=== PATIENT | female | born 1995 | race Caucasian/White ===

== ENCOUNTER 2016-11-25 23:57 | Observation (INO) | payer OTHER ==
[~2016-11-25] VITALS: Ht 167.6 cm; Wt 59.7 kg
[2016-11-25 23:59] VITALS: BP 107/68; PULSE 89; RESP 16; O2SAT 100
[2016-11-26] VITALS (14 sets, daily range): BP systolic 93–125; BP diastolic 45–87; PULSE 48–101; RESP 11–24; O2SAT 92–100
--- NOTE | 2016-11-26 00:08 | ED.REPORT ---
HPI-NVD Date of Service Nov 26, 2016 ED Provider: Norm Bowman MD Patient is a 21 year old female who presents to the ED with stabbing epigastric pain that began yesterday morning. Patient states that she first awoke from sleep with the pain, but was able to go back to sleep. However, the pain has been present since that time. She states that the pain waxes and wanes, often stabbing in character. Patient reports a subjective fever. She admits to associated nausea but has not vomited. She admits to recent diarrhea, but denies having any diarrhea today. She reports some mild right sided flank pain but denies dysuria, or other urinary symptoms. Patient denies currently being and is currently on her menstrual period. She has an ultrasound scheduled later this week for possible ovarian cysts. Patient denies prior cholecystectomy, a history of gallstones, or a family history of gallbladder disease. Nursing Notes Chief Complaint: Female Abdominal Pain Nursing Notes Reviewed: Yes Allergies: Coded Allergies: codeine (Verified Allergy, Severe, Anaphylaxis, 11/26/16) Cephalosporins (Verified Allergy, Unknown, 11/26/16) tramadol (Verified Adverse Reaction, Severe, 11/26/16) dizziness Uncoded Allergies: SUDAPHED (Allergy, Severe, Hives, 11/26/16) PENICILLIN (Allergy, Unknown, 11/26/16) SULFA (Allergy, Unknown, 11/26/16) General Time Seen by MD: 00:07 Chief Complaint Nausea, Diarrhea, Abd pain, constant Hx Obtained From: Patient Arrived By: Walk-in Onset Occurred: Yesterday Symptom Duration: Waxes and wanes Location: : Epigastric Quality: Painful, Stabbing Radiation: : To flank Severity: Current: Moderate Severity: Maximum: Severe Recent Healthcare: No recent doctor visit, No recent hospitalization Similar Sx Previous: No Past Medical History Past Medical History healthy Past Surgical History none Smoking History Never Smoker Social History Alcohol Use: Denies alcohol use Drug Use: Denies drug use Other Social History: Good social support, Local resident Ambulatory Status Independent Review of Systems Constitutional: Reports: Fever (subjective) GI: Reports: Abdominal pain, Diarrhea (yesterday), Nausea, Denies: Vomiting Complete sys rev & neg: except as marked. Female: Denies: Dysuria, Flank pain, , Urinary frequency, Urinary urgency Physical Exam Initial Vital Signs Vital Signs (First) Date Time Temp Pulse Resp B/P Pulse Ox O2 Delivery O2 Flow Rate FiO2 11/25/16 23:59 36.1 89 16 107/68 100 Room Air Initial VS: Reviewed, Vital signs normal Head / Eyes: Atraumatic, Normocephalic, PERRL ENT: Mucous membranes moist, Conjunctiva normal, No scleral icterus Neck: Supple, Full range of motion Respiratory: Breath sounds normal, Clear to auscultation, No respiratory distress Cardiovascular: Regular rate & rhythm, Heart sounds normal Extremities: Vascular intact, Neuro intact Skin: Warm, Dry, No cyanosis Neurologic: Alert, Oriented, Nonfocal Psychiatric: Mood/affect normal, Behavior normal, Normal thought content General/Constitutional: Awake, Alert, No acute distress Abdomen: Soft, No guarding, No rebound Tenderness/Guarding/Rebound: Positive: Tender RUQ..., Tender epigastric Interpretation & Diagnostics Interpretation & Diagnostics: Urine Test: Negative US ABDOMEN CONCLUSION: Findings suspicious for early acute appendicitis; correlate clinically. No gallstones or biliary ductal dilatation. Radiologist: Ken Marinelli MD 11/26/2016 - 2:44:[address] [facility] Lab Results Interpretation Result Diagram: 11/26/16 0020 11/26/16 0020 Test 11/26/16 00:20 White Blood Count 15.8th/mm3 (3.8-10.1) Red Blood Count 4.48mil/mm3 (3.90-5.20) Hemoglobin 13.5g/dL (12.0-15.6) Hematocrit 40.0% (35.0-46.0) Mean Corpuscular Volume 89.3fL (81-100) Mean Corpuscular Hemoglobin 30.1pg (27.0-35.0) Mean Corpuscular Hemoglobin Concent 33.8% (32.0-37.0) Red Cell Distribution Width 13.0% (12.3-15.4) Platelet Count 273bil/L (150-400) Neutrophils (%) (Auto) 56.9% (40-74) Lymphocytes (%) (Auto) 33.4% (14-46) Monocytes (%) (Auto) 7.8% (4-12) Eosinophils (%) (Auto) 0.9% (0-5) Basophils (%) (Auto) 0.6% (0-3) Hold Purple Top Tube Received (Received) Hold Blue Top Tube Received (Received) Hold Urine Received (Received) Sodium Level 140mEq/L (134-144) Potassium Level 3.8mEq/L (3.5-5.2) Chloride Level 102mEq/L (97-108) Carbon Dioxide Level 26mmol/L (18-29) Blood Urea Nitrogen 9mg/dL (6-20) Creatinine 0.57mg/dL (0.57-1.00) Estimat Glomerular Filtration Rate 188mL/min (>59) Glucose Level 72mg/dL (60-99) Calcium Level 9.8mg/dL (8.5-10.1) Magnesium Level 2.0mg/dL (1.6-2.6) Total Bilirubin 1.4mg/dL (0.0-1.2) Aspartate Amino Transf (AST/SGOT) 18U/L (0-50) Alanine Aminotransferase (ALT/SGPT) 12U/L (0-32) Alkaline Phosphatase 51U/L (25-150) Total Protein 7.4g/dL (6.4-8.4) Albumin 4.6g/dL (3.4-5.0) Lipase 30U/L (13-60) Hold Red Top Tube Received (Received) Hold [place] Top Tube Received (Received) Hold [place] Top Tube Received (Received) Lab Results Interpretation: Elevated white blood count Re-Eval/Medical Decision Med Decision/Clinical Course 21-year-old female who presents with a day and a half of abdominal pain intensifying and localizing to her right side. She has an elevated white count of 15,800. She is anorectic. She has had no fever. Ultrasound shows that she has upper limits normal size nondistendable appendix with wall thickening. Her case was discussed with Dr. Schrader. Transitional orders were written including Zosyn antibiotic. She will have surgery later this morning. Re-Evaluation/Progress #1: Time of Eval: 01:17 Re-Evaluation/Progress Note: Rechecked the patient to discuss the results of her labs. Will order an ultrasound due to the abnormalities found. Patient understands and agrees with this plan. Re-Evaluation/Progress #2: Time of Eval: 02:21 Re-Evaluation/Progress Note: Informed the patient of the ultrasound results, with the finding of acute appendicitis. Her abdomen is tender on the entire right side on reexamination. Patient will need to be admitted to the hospital for surgery. She understands and agrees with this plan. All questions were addressed. Consultation : Referral / Consult Name: Lokesh Schrader MD Consulted With: Surgeon Call Returned at: 02:56 Storage Facility Rental Clerk: Will see patient, Agrees with eval, Agrees with plan, Accepts admit Note: Spoke with Dr. Schrader, surgeon, about the patient's case. He agrees to accept the patient for admit. Counseled Regarding: Diagnosis, Lab results, Need for admission Discharge & Departure Impression: Primary Impression: Acute appendicitis Acute appendicitis type: unspecified acute appendicitis type Qualified Code: K35.80 - Unspecified acute appendicitis Disposition: ADMITTED TO HOSPITAL Discharge Condition All VS Reviewed: Yes Condition: Stable Scribe Attestation Portions of this note were transcribed by Karely Kramer. I, Dr. Bowman personally performed the history, physical exam and medical decision-making; I reviewed and confirmed the accuracy of the information in the transcribed note. Signed by: Maria Isabel Collins, 11/26/2016 0257 Norm Bowman MD Nov 26, 2016 00:08 Karely Kramer Nov 26, 2016 00:32
[2016-11-26] MEDS ORDERED: 0.9% Sodium Chloride 1,000 ML IV ONE (00:43)
[2016-11-26] MEDS ORDERED: Ondansetron 2 mg/mL 2 mL Inj IVPUSH PRN ×4 (00:45→09:45)
[2016-11-26] MEDS ORDERED: Pantoprazole 4 mg/mL 10 mL Inj IVPUSH ONE (00:45)
[2016-11-26 00:53] LABS: BASOPHILS % (AUTO) 0.6 % (0-3); EOSINOPHILS % (AUTO) 0.9 % (0-5); MONOCYTES % (AUTO) 7.8 % (4-12); Mean Corpuscular Hemoglobin 30.1 pg (27.0-35.0); Mean Corpuscular Volume 89.3 fL (81-100); NEUTROPHILS % (AUTO) 56.9 % (40-74); Platelet Count 273 bil/L (150-400)
[2016-11-26] MEDS: HYDROmorphone 0.5 mg/0.5 mL iSecure Syringe IVPUSH PRN ×4 (01:14→18:01)
[2016-11-26] MEDS ORDERED: levoFLOXacin Inj 500 MG in IV Premix 1 EACH IV ONE ×3 (02:55→11:35)
[2016-11-26] MEDS ORDERED: metroNIDAZOLE Inj 500 MG in IV Premix 1 EACH IV ONE ×3 (02:55→11:35)
[2016-11-26] MEDS ORDERED: fentaNYL-PF 50 mCg/mL 2 mL Inj ONE (03:27)
[2016-11-26] MEDS ORDERED: HYDROmorphone 2 mg/mL Inj ONE (03:27)
[2016-11-26] MEDS ORDERED: Dexamethasone 4 mg/mL Inj ONE (03:27)
[2016-11-26] MEDS ORDERED: Rocuronium 10 mg/mL 5 mL Inj ONE (03:27)
[2016-11-26] MEDS ORDERED: Propofol 10,000 mCg/mL 20 mL Inj ONE (03:27)
[2016-11-26] MEDS ORDERED: Ondansetron 2 mg/mL 2 mL Inj ONE (03:27)
[2016-11-26] MEDS ORDERED: MetoCLOpramide 5 mg/mL 2 mL Inj ONE (03:27)
[2016-11-26] MEDS ORDERED: Succinylcholine Chloride 20 mg/mL 5 mL Inj ONE (03:27)
[2016-11-26] MEDS ORDERED: 0.9% Sodium Chloride 250 ML ONE (04:11)
--- NOTE | 2016-11-26 06:08 | NUR ---
Admit/Abd pain Admitted pt from ED to [facility], and has been afebrile. Pt denies ongoing abdominal pain, but states that pain is going on and off and has been radiating to her lower back. Pt denies sob, n/v. IV ABx administered as scheduled. Currently on NPO for possible procedure.
[2016-11-26 07:54] LABS: APPEARANCE,URINE HAZY (CLEAR,HAZY); COLOR,URINE YELLOW (YELLOW); OCCULT BLOOD,URINE MODERATE (NEGATIVE); UROBILINOGEN,URINE NORMAL (NORMAL)
[2016-11-26] MEDS ORDERED: Lactated Ringer's 1,000 ML IV ONE (08:52)
[2016-11-26] MEDS ORDERED: Bupivacaine-MPF 0.5% W/EPI 30 mL Inj INFILTRATE ONE (08:55)
--- NOTE | 2016-11-26 09:20 | DRSVH ---
PROCEDURE: US ABDOMEN INDICATIONS: RUQ abd pain, elev WBC and Bili TECHNIQUE: Real-time scanning was performed of the abdominal and retroperitoneal organs, with image documentatio n. COMPARISON: None. FINDINGS: Liver length: 18.10 cm Gallbladder Wall Thickness: 2.40 mm CBD: 3.50 mm Spleen length: 10.85 cm Right kidney length: 11.08 cm Left kidney length: 10.37 cm Aorta(Proximal): 1.57 cm Aorta(Mid): 1.52 cm Aorta(Distal): 1.47 cm RCIA: 9.60 mm LCIA: 9.20 mm Liver: Liver is normal in size and homogeneous in echotexture. Gallbladder: Normal gallbladder. Biliary ducts: Intrahepatic bile ducts are non-dilated. Extrahepatic bile duct caliber is normal. Normal is 6-7 mm or less in diameter, or 10 mm or less post-cholecystectomy. Pancreas: Visualized portions of the pancreas are sonographically normal. Spleen: Spleen is normal in size and homogeneous in echotexture. Kidneys: Kidneys are normal in size and echotexture. No hydronephrosis or nephrolithiasis. No francesca d masses. Aorta: Visualized aorta is normal in caliber at less than 3 cm. Iliacs: Proximal common iliac arteries are normal in caliber at less than 2.5 cm. IVC: Intrahepatic inferior vena cava is patent. Miscellaneous: No free abdominal fluid. The appendix is well-visualized and abnormally thickened me asuring 8 mm. Appendix is noncompressible. There is focal right lower quadrant tenderness. IMPRESSION: 1. No abnormality seen within the upper abdomen. 2. Findings suspicious for early nonruptured acute appendicitis. Recommend clinical correlation. Note: These findings are concordant with the preliminary interpretation. Dictated by: Jay Bray [facility] Interpreted: Sita Weaver MD on 11/26/2016 at 9:17 Transcribed by: YOLANDA on 11/26/2016 at 9:19 Approved by: Sita Weaver MD, PhD on 11/26/2016 at 11:47
--- NOTE | 2016-11-26 09:40 | PCM.HPANE ---
Patient Data Date of Service: Nov 26, 2016 Surgeon Admitting Provider:Lokesh Schrader MD Attending Provider:Lokesh Scharder MD Primary Care Physician:Mary Other Provider:Aron Josue Anesthesia Reason for Visit Acute Appendicitis Ht/WT & BMI Height (Feet): 5 Height (Inches): 6.00 Weight (Kilograms): 59.700 Body Mass Index 21.15 Allergies Coded Allergies: codeine (Verified Allergy, Severe, Anaphylaxis, 11/26/16) Cephalosporins (Verified Allergy, Unknown, 11/26/16) tramadol (Verified Adverse Reaction, Severe, 11/26/16) dizziness Uncoded Allergies: SUDAPHED (Allergy, Severe, Hives, 11/26/16) PENICILLIN (Allergy, Unknown, 11/26/16) SULFA (Allergy, Unknown, 11/26/16) Diabetes History Hx Diabetes?: No Medications Home Meds Incl Beta Venkatesh: No History History of ENT Problems?: No HEENT History: Positive for:: Sinus Problem (sinus surgery) Denies:: Cataracts Dysphagia Glaucoma Other HEENT Pertinent History: sinus surgery and tonsilectomy Hx of Heart Problems?: No Cardiovascular History: Denies:: Congestive Heart Failure Hypertension Hx of Respiratory Problem?: Yes Respiratory History: Positive for:: Asthma (sports induced ashtma) Denies:: COPD Chest Surgery Dyspnea Emphysema Tuberculosis Hx Neurologic Problems?: No Neurological History: Denies:: Alzheimer's Disease CVA Dementia Dizziness Headaches Parkinson's Disease Seizures Hx of GI Problems?: Yes Gastrointestinal History: Positive for:: Gastroesphageal Reflux Heartburn Denies:: Diverticulitis Gastrointestinal Bleeding Hepatitis Hiatal Hernia Rectal Bleeding Other GI Pertinent History: Appendecitis ongoing Hx of Problems?: No Genitourinary History: Denies:: HX of Hemodialysis Kidney Stones Urinary Tract Infection HX of Peritoneal Dialysis: No Female Hx: Denies:: Currently Endometriosis Pelvic Inflammatory Problems with Breasts? Hx Musculoskeletal Problems?: No Hx of Psycho/Social Problems?: No Psycho Social History: Positive for:: Anxiety Denies:: Bipolar Disorder Hx Depression Suicide Attempt Hx Surgeries?: No Other History: Denies:: Cancer Hospitalization Thyroid Disease History Blood Transfusions: Positive for:: Accept Blood Products? Denies:: Blood Transfuse Reaction Blood Transfusions Hx Diabetes: No Hx Alcohol Use: NoHx Substance Use: No Smoking Status: Never Smoker Have You Smoked inLast 12 mo: Yes Stop/Bang Treated for Sleep Apnea?: No Do You Have a CPAP Machine?: No S-Snoring: Do You Snore Loudly: No T-Tired: feel tired, fatigued: No O-Obsered: Observed not breath: No P-Blood Pressure: treated: No B- Body Mass Index > 35 kg/m2: No A- Age over 50: No N- Neck Large Circumference: No G- Gender Male: No AKSHAT Total Score: 0 AKSHAT Risk Assessment: Low Risk, <3 Yes Risk Assessment Category Category 1A: Patient has history of documented sleep apnea, and HAS NOT received any narcotic, sedative or anesthesia administration during this stay. Category 1B: Patient has history of documented sleep apnea, and HAS received any narcotic , sedative or anesthesia administration during this stay Category 2: Patient has SUSPECTED Obstructive Sleep Apnea, and HAS received any narcotic , sedative or anesthesia administration during this stay. Category 3: Patient has SUSPECTED Obstructive Sleep Apnea and HAS NOT received narcotic, sedative or anesthesia administration during this stay. Category 4: Outpatient in Procedural Areas with known sleep apnea or who screen positive for High Risk via the STOP/BANG questionnaire. Exam Exam Vital Signs Vital Signs Date Time Temp Pulse Resp B/P Pulse Ox O2 Delivery O2 Flow Rate FiO2 11/26/16 08:12 36.4 62 16 100/48 100 Room Air 11/26/16 04:26 36.3 68 18 94/51 97 Room Air 11/26/16 02:29 70 16 108/51 100 Room Air General Appearance: Alert, Oriented X3, Cooperative, No Acute Distress HEENT/AIRWAY: MP 1 Lungs: Clear to Auscultation, Normal Air Movement Heart: Exam Unremarkable, Normal S1, Normal S2, No Murmurs/Rubs/Gallops Meds/Labs/Diagnostics Admission Meds Current Medications Sodium Chloride (Normal Saline) 1,000 ml @ 0 mls/hr Q0M ONCE IV Last administered on 11/26/16 01:13; Start 11/26/16 at 00:43; Stop 11/26/16 at 00:45 ; Status DC Pantoprazole 40 mg 40 mg ONCE ONCE IVPUSH Last administered on 11/26/16 01:13 ; Start 11/26/16 at 00:45; Stop 11/26/16 at 00:46; Status DC Levofloxacin/ Dextrose 500 mg/ Premix 100 ml @ 100 mls/hr ONCE ONCE IV Last administered on 11/26/16 04:18; Start 11/26/16 at 02:55; Stop 11/26/16 at 03:54 ; Status DC Metronidazole/ Sodium Chloride 500 mg/Premix 100 ml @ 200 mls/hr ONCE ONCE IV Last administered on 11/26/16 03:13; Start 11/26/16 at 02:55; Stop 11/26/16 at 03:24; Status DC Sodium Chloride 250 ml @ ud STK-MED ONCE .ROUTE Last administered on 11/26/16 04:17; Start 11/26/16 at 04:11; Stop 11/26/16 at 04:14; Status DC Lactated Ringer's (Lr) 1,000 ml @ ud STK-MED ONCE IV Last administered on 11/26 08:52; Start 11/26/16 at 08:52; Stop 11/26/16 at 09:02; Status DC Bupivacaine HCl/ Epinephrine Bitart (Sensorcaine-MPF 0.5% W/EPI Inj) 30 ml STK- MED ONCE INFILTRATE Last administered on 11/26/16 08:55; Start 11/26/16 at 08: 55; Stop 11/26/16 at 09:30; Status DC Labs Test 11/26/16 00:20 White Blood Count 15.8th/mm3 (3.8-10.1) Red Blood Count 4.48mil/mm3 (3.90-5.20) Hemoglobin 13.5g/dL (12.0-15.6) Hematocrit 40.0% (35.0-46.0) Mean Corpuscular Volume 89.3fL (81-100) Mean Corpuscular Hemoglobin 30.1pg (27.0-35.0) Mean Corpuscular Hemoglobin Concent 33.8% (32.0-37.0) Red Cell Distribution Width 13.0% (12.3-15.4) Platelet Count 273bil/L (150-400) Neutrophils (%) (Auto) 56.9% (40-74) Lymphocytes (%) (Auto) 33.4% (14-46) Monocytes (%) (Auto) 7.8% (4-12) Eosinophils (%) (Auto) 0.9% (0-5) Basophils (%) (Auto) 0.6% (0-3) Hold Purple Top Tube Received (Received) Hold Blue Top Tube Received (Received) Urine Color Yellow (YELLOW) Urine Appearance Hazy (CLEAR,HAZY) Urine pH 6.0 (5.0-8.0) Urine Specific [place] 1.030 (1.003-1.035) Urine Protein Negativemg/dL (NEG,TRACE) Urine Glucose (UA) Negativemg/dL (NEGATIVE) Urine Ketones Negativemg/dL (NEGATIVE) Urine Occult Blood Moderate (NEGATIVE) Urine Nitrite Negative (NEGATIVE) Urine Bilirubin Negative (NEGATIVE) Urine Urobilinogen Normalmg/dL (NORMAL) Urine Leukocyte Esterase Negative (NEGATIVE) Urine RBC 3-10/hpf (0-2) Urine WBC 0-5/hpf (0-5) Urine Epithelial Cells Occasional/hpf (NONE-MOD) Urine Crystals Oxalic acid crystals (NONE Urine Bacteria None/hpf (NONE-FEW) Urine Hyaline Casts None/lpf (NONE) Urine Granular Casts None seen (NONE SEEN) Urine Waxy Casts None seen (NONE SEEN) Urine Red Blood Cell Casts None seen (NONE SEEN) Urine White Blood Cell Casts None seen (NONE SEEN) Urine Mucus Present (None Seen) Urine Trichomonas None seen (NONE SEEN) Urine Yeast None (NONE SEEN) Urinalysis Comment None Urine Culture Reflexed Not indicated Hold Urine Received (Received) Sodium Level 140mEq/L (134-144) Potassium Level 3.8mEq/L (3.5-5.2) Chloride Level 102mEq/L (97-108) Carbon Dioxide Level 26mmol/L (18-29) Blood Urea Nitrogen 9mg/dL (6-20) Creatinine 0.57mg/dL (0.57-1.00) Estimat Glomerular Filtration Rate 188mL/min (>59) Glucose Level 72mg/dL (60-99) Calcium Level 9.8mg/dL (8.5-10.1) Magnesium Level 2.0mg/dL (1.6-2.6) Total Bilirubin 1.4mg/dL (0.0-1.2) Aspartate Amino Transf (AST/SGOT) 18U/L (0-50) Alanine Aminotransferase (ALT/SGPT) 12U/L (0-32) Alkaline Phosphatase 51U/L (25-150) Total Protein 7.4g/dL (6.4-8.4) Albumin 4.6g/dL (3.4-5.0) Lipase 30U/L (13-60) Hold Red Top Tube Received (Received) Hold [place] Top Tube Received (Received) Hold Fry Top Tube Received (Received) Plan Impression Patient chart reviewed, patient interviewed and anesthestic plan with risks, benefits, and alternatives discussed, and informed consent obtained. ASA Physical Status: ASA2 Mod Systemic Disease (tobacco/MJ abuse) Anesthetic Plan: GA Bene/Risks/Altern/Consents: Yes HP Complete Prior to Induction: Yes Trevin Valenzuela DO Nov 26, 2016 09:40
[2016-11-26] MEDS ORDERED: Lactated Ringer's 500 ML IV PRN (09:41)
[2016-11-26] MEDS ORDERED: Lactated Ringer's 1,000 ML IV SCH (09:41)
[2016-11-26] MEDS ORDERED: Dexamethasone 4 mg/mL Inj IVPUSH PRN (09:45)
[2016-11-26] MEDS ORDERED: Phenylephrine 10,000 mCg/mL Inj IVPUSH PRN (09:45)
[2016-11-26] MEDS ORDERED: MetoCLOpramide 5 mg/mL 2 mL Inj IVPUSH PRN (09:45)
[2016-11-26] MEDS ORDERED: EPHEDrine Sulfate 50 mg/mL Inj IVPUSH PRN (09:45)
[2016-11-26] MEDS ORDERED: fentaNYL-PF 50 mCg/mL 2 mL Inj IVPUSH PRN (09:45)
[2016-11-26] MEDS ORDERED: diphenhydrAMINE 25 mg Capsule PO PRN (10:00)
[2016-11-26] MEDS: HYDROmorphone 1 mg/mL Inj IVPUSH PRN ×2 (10:10→10:27)
--- NOTE | 2016-11-26 12:22 | PCM.ANEP1 ---
Post Anesthesia Phase 1 PACU Phase 1 Assessment Date of Service: Nov 26, 2016 Vital Signs Vital Signs Date Time Temp Pulse Resp B/P Pulse Ox O2 Delivery O2 Flow Rate FiO2 11/26/16 11:01 36.4 72 19 96/63 100 Room Air 11/26/16 10:34 57 14 99/45 99 Nasal Cannula 2 11/26/16 10:20 36.3 48 13 99/57 96 Nasal Cannula 2 11/26/16 10:15 60 24 103/49 92 Room Air 11/26/16 10:10 82 11 119/57 96 Room Air 11/26/16 10:05 101 12 125/67 99 Simple Mask 8 11/26/16 10:01 36.2 97 14 115/87 100 Simple Mask 8 11/26/16 08:12 36.4 62 16 100/48 100 Room Air 11/26/16 04:26 36.3 68 18 94/51 97 Room Air Anesthetic Administered: GA Level of Alertness: Awake, talking PRITCHETT's with Equal Strength: Yes Pain: Yes Pain Scale Score: 6 Nausea or Vomiting: No Oxygen Delivery: Simple Mask Lungs: Clear to Auscultation, Normal Air Movement Dermatome Level: Full Sensation Trevin Valenzuela DO Nov 26, 2016 12:22
--- NOTE | 2016-11-26 12:31 | PCM.ANEP2 ---
Post Anesthesia Evaluation ASA/CMS Post Anesthesia Date of Service: Nov 26, 2016 VS in Patient's Normal Range?: Yes Resp Stable; Airway Patent?: Yes CV Function & Hydration Stable: Yes Mental Status Recovered?: Yes Pain control Satisfactory?: Yes N/V Control Satisfactory?: Yes Trevin Valenzuela DO Nov 26, 2016 12:31
[2016-11-26] MEDS: Ondansetron 2 mg/mL 2 mL Inj IVPUSH PRN ×2 (13:30→20:10)
[2016-11-26] MEDS ORDERED: ALPR0.254 PO (14:11)
--- NOTE | 2016-11-26 14:24 | PCM.DISURG ---
Surgical Discharge Instruction Date of Service Nov 26, 2016 Dates of Hospitalization Date of Hospital Admission Nov 26, 2016 at 03:26 Providers Admitting Physician: Lokesh Schrader MD Primary Care Physician: Nopcp Attending Physician: Lokesh Schrader MD Discharge Diagnosis Discharge Diagnosis appendicitis Post Operative diagnosis laparoscopic appendectomy Diet Discharge Diet: No restrictions Activity Discharge Activity-General: No restrictions Dressing and Incisional Care Dressing Care: Allow Steri Stripes to fall off, Remove outer dressing after 24 hrs Hygiene: May shower Follow Up Plan Follow Up Plan 1-2 weeks with [facility] for routine pathology review and wound check Call your provider for: Fever, Chills, Wound redness, Increasing wound pain Esequiel Chaney MD Nov 26, 2016 14:24
[2016-11-26] MEDS ORDERED: OXYC5TAB72 PO (14:25)
--- NOTE | 2016-11-26 15:06 | NUR ---
Social Work- Initial Assessment Data: Patient is a 21 year old female admitted 11/26/16 for acute appendicitis per H&P. Pt's insurance is [employer]. Pt does not have a PCP provider, as she has recently moved here from [place]. EMR reviewed. SW met with pt at bedside to discuss discharge planning, SW role explained. Pt alert and oriented x3. Pt resides in [place] with her parents where she remains independent with her ADLs. Patient does not use any DME and does not drive. Patient does not have any LTC insurance or VA benefits. SW educated pt regarding DPOA/Advance Directive and encouraged pt to bring a completed form into the hospital. SW provided phone number and plan on board. Pt to discharge home with mom and brother to transport via POV. No anticipated discharge needs. SW continue to follow. Assessment: Pt who is independent at base. Plan: Pt to discharge home with mom and brother to transport via POV. No anticipated discharge needs. SW continue to follow. TOMAS Dumont
--- NOTE | 2016-11-26 19:27 | NUR ---
Return to Floor, Pain, Nausea Patient returned to floor alert and oriented. Laparoscopic sites intact, no drainage. Patient had some pain in the lower right abdomen, controlled well with ordered pain medications. Patient had some nausea during the shift, states that ordered nausea medication resolved symptoms. Care is ongoing.
--- NOTE | 2016-11-26 23:34 | HP ---
[address] [address] HISTORY AND PHYSICAL PATIENT: RAMBO LIGHT : 1995 MR#: [id number] ADMIT: 11/26/2016 JOB ID: [id number] IDENTIFICATION: A 21-year-old woman admitted to the Surgery service with probable appendicitis. HISTORY OF PRESENT ILLNESS: The patient notes onset of abdominal pain over the past 24 hours. She has some mild associated nausea, feels better since receiving IV antibiotics and pain medicines in the emergency department. She is in the middle of her menstrual cycle, and has never had mid cycle pain similar to this. She does have some history of irritable bowel syndrome, but symptoms are not flaring up right now and have not been similar to this pain. In the emergency department, she had an ultrasound, was felt to have appendicitis, and was started on antibiotics. PAST MEDICAL HISTORY: None. MEDICATIONS: None. ALLERGIES: 1. PENICILLIN. 2. SULFA. 3. CEPHALOSPORINS. 4. TRAMADOL. 5. CODEINE. 6. SUDAFED. SOCIAL HISTORY: Smoker. Negative daily alcohol use. She is seen with her mother and her brother. They have recently moved here from [place] for her father's job. FAMILY HISTORY: Her mother had her appendix out at age 17. REVIEW OF SYSTEMS: Negative. PHYSICAL EXAMINATION: Temperature is 36.3, pulse is in the 60s, blood pressure is 100/48, room air saturation is 100%. She is in no acute distress. Lungs: Clear. Heart sounds are regular. She has mild right lower quadrant tenderness. No suprapubic tenderness. She has a tampon in place. Rectal and pelvic exam is not performed. LABORATORIES: White count last night was 15.8, hematocrit was 40. Chemistries are normal except for mild elevation of bilirubin at 1.4. Lipase was 30. Urine was negative. UA showed some red cells, though was likely contaminated specimen. IMAGING: I have reviewed the ultrasound reports, worksheet and films. This seems to be consistent with appendicitis with appendix at 8 mm and noncompressible. IMPRESSION AND PLAN: Probable appendicitis. We have talked about the options of further imaging or observation, but I have recommended that we undergo a laparoscopic appendectomy this morning as I have a high index of suspicion that she indeed does have appendicitis. She agrees to proceed. We will re-dose her with her antibiotics preop.
--- NOTE | 2016-11-26 23:46 | OP ---
[address] [address] OPERATIVE REPORT PATIENT: RAMBO LIGHT : 1995 MR#: [id number] ADMIT: 11/26/2016 JOB ID: [id number] DATE OF SURGERY: 11/26/2016 PREOPERATIVE DIAGNOSIS(ES): Appendicitis. POSTOPERATIVE DIAGNOSIS(ES): Appendicitis. PROCEDURE: Laparoscopic appendectomy. SURGEON: Esequiel Chaney MD. MASH FILTER OPERATOR: 1. Laron Tadeo PA-C. 2. Yesy Mojica MS3. INDICATIONS: A 21-year-old female who presents with signs and symptoms consistent with appendicitis. FINDINGS: 1. Acute nonperforated appendicitis. 2. Presence of an inventory assistant was needed for camera operation and skin closure. 3. The patient did not receive perioperative antibiotics within one hour prior to incision as described below. PROCEDURE: Patient was brought to the operating room. General anesthetic was administered. The abdomen was prepped and draped in a sterile fashion. The SCOAP protocol was followed with a surgical time-out. After intubation, but prior to time-out, I found out that the order for the antibiotics to be re-dosed within an hour prior to surgery had not been taken off by pharmacy and we; therefore, were faced with the decision to delay her incision while waiting for pharmacy to mix up the drugs and get them up and infuse them in the patient, or to simply move ahead. Given that she was under general anesthetic and that she had received an adequate dose of Levaquin and Flagyl roughly four hours prior to the incision, I felt that it was in the patient's best interest to proceed without further IV antibiotics rather than have extended time under anesthesia. We; therefore, proceeded without further antibiotics, as confirmed with time-out. We began with a Veress needle in an infraumbilical position, insufflated the abdomen and then placed an optical trocar. The abdomen was surveyed. There was minimal free fluid down in the pelvis. Two additional ports were placed. The patient was positioned head down and tilted to the left. This revealed what was an obviously inflamed appendix consistent with early acute appendicitis. The base of the appendix was nice and soft. We made a window where the appendix was detached the cecum and then placed our stapler and divided the appendix right at the base. The staple line was intact. We did not have significant residual appendiceal stump. We now took down the mesoappendix with cautery staying fairly close to the appendix and hemostasis was good. The appendix was removed in a bag without wound contamination. We now inspected our staple line in the area of operation for adequate hemostasis. Staple line good, hemostasis was good. We irrigated appropriately. We let down the pelvis and both tubes and ovaries appeared normal. The liver appeared grossly normal. We suctioned out all of the irrigation, removed our ports, closed the suprapubic incision at the fascial level, followed by skin closure with absorbable sutures. The patient tolerated the procedure well. The patient will be redosed with her antibiotics in the recovery room without anticipated further antibiotic usage.
[2016-11-27 05:05] VITALS: BP 99/57; PULSE 52; RESP 16; O2SAT 98
--- NOTE | 2016-11-27 07:29 | NUR ---
Nausea Patient had some nausea at the start of shift. Patient was given 4mg Zofran and it seemed to control the nausea. Patient up independent to bathroom and ambulating around floor during shift. A&OX3. Saline locked. Patient receiving Oxycodone q4 for pain. Seems to managing pain well.
--- NOTE | 2016-11-27 09:40 | DIS ---
[address] [address] DISCHARGE SUMMARY PATIENT: RAMBO LIGHT : 1995 MR#: [id number] ADMIT: 11/26/2016 JOB ID: [id number] DIS: 11/27/2016 DISCHARGE DIAGNOSIS: Appendicitis. OPERATIONS AND PROCEDURES: Laparoscopic appendectomy. HOSPITAL COURSE: A 21-year-old otherwise healthy female who presented with signs and symptoms consistent with appendicitis. She underwent laparoscopic appendectomy without complications. She was discharged on postop day #1 with her wound intact, healing well, tolerating p.o. She will be discharged with 20 oxycodone 5 mg p.o. q.4 hours p.r.n., and told to drink prune juice, and take milk of magnesia for stool softener. She will followup in 1-2 weeks with the [facility] to review pathology and for a wound check.
--- NOTE | 2016-11-27 10:32 | NUR ---
Social Work- Readiness for Discharge/Discharge Data: EMR reviewed. Pt is on day 1 of hospitalization for acute appendicitis per H&P. Pt is POD 2. Pt is medically stable and will discharge home today. Pt to discharge home with mother and brother to transport via POV. No discharge needs. Assessment: Pt who is independent at base. Plan: Pt to discharge home today with family to transport via POV. No discharge needs. TOMAS Dumont
--- NOTE | 2016-11-27 11:19 | NUR ---
Discharge Pt discharge to home with family at 1119. A&OX3, PRITCHETT, IV dcd intact, VSS, 3x lap sites CDI, Hard copy script provided to pt, CareNotes and instructions provided on dc dx and new medications, Instructed on s/sx to seek medical attention for. All personal belongings in hand at dc. No questions/concerns left unanswered at time of dc. Pt walked off unit to vehicle. Addendum: 11/27/16 at 1121 by ANURAG ANDRES RN Pain tolerable - medicated prior to dc.
--- NOTE | 2016-11-28 13:46 | PATH ---
SURGICAL PATHOLOGY Attending Physician:Esequiel Chaney MD CASE STATUS: Signed Out PATIENT NAME: RAMBO LIGHT PID: [id number] : 1995 DATE COLLECTED:11/26/2016 16:46 SPECIMEN: Appendix CLINICAL HISTORY: PROBABLE APPENDICITIS 1).APPENDIX FINAL DIAGNOSIS: 1.APPENDIX: ACUTE APPENDICITIS. NO EVIDENCE OF MALIGNANCY. ICD10 CODE K35.80 GROSS DESCRIPTION: Received in formalin, labeled with the patient' s name and "appendix", is one pink-mclean appendix measuring 6.0 x 0.8 x 0.8 cm. There is a small amount of attached fatty tissue. The serosal surface is smooth and glistening. Sectioning of the appendix reveals a wall that measures 0.2 cm in thickness and a lumen distended to 0.3 cm in diameter and filled with a light mclean, creamy substance. Hris Coordinator sections are submitted in one cassette. ([id number]) MICRO DESCRIPTION: See diagnosis. ICD-9 CODES: CPT CODES: 1: 90433 Electronically Signed Out Elisha Jones MD [facility] [address], [place] [address] Technical component performed at [facility], [address] [place] [address] Ave[address], [place], [address]
== END 2016-11-27 11:20 | disposition home or self-care (01) ==
LOC: SED 23:57 → OSC 11-26 03:26
PROVIDERS: ADMIT Surgery; ATTEND Surgery
PROC: 0DTJ4ZZ Resection of Appendix, Percutaneous Endoscopic Approach (ICD-10-PCS; principal; 2016-11-26 08:30)
DX: K35.80 Unspecified acute appendicitis (principal); K21.9 Gastro-esophageal reflux disease without esophagitis; J45.909 Unspecified asthma, uncomplicated; F17.210 Nicotine dependence, cigarettes, uncomplicated; Z88.5 Allergy status to narcotic agent; Z88.8 Allergy status to other drugs, medicaments and biological substances
CPT/HCPCS: 44970; 76700; 80053; 81000; 81025; 83690; 83735; 85025; 94640; 96361; 96365; 96375; 96376; 99285; G0378; J0330; J1100; J1170; J2250; J2405; J2765; J3010; J3490; J7030; J7050; J7120

== ENCOUNTER 2017-02-03 15:16 | Emergency (ER) | payer OTHER ==
[~2017-02-03] VITALS: Ht 167.6 cm; Wt 54.5 kg
[~2017-02-03 15:16] MED LIST: ALPR0.254 PO; OXYC5TAB72 PO
[2017-02-03 15:30] VITALS: BP 112/67; PULSE 95; RESP 15; O2SAT 100
[2017-02-03 16:09] LABS: BASOPHILS % (AUTO) 0.9 % (0-3); EOSINOPHILS % (AUTO) 0.8 % (0-5); MONOCYTES % (AUTO) 6.8 % (4-12); Mean Corpuscular Hemoglobin 29.5 pg (27.0-35.0); Mean Corpuscular Volume 89.6 fL (81-100); NEUTROPHILS % (AUTO) 56.8 % (40-74); Platelet Count 283 bil/L (150-400)
[2017-02-03 16:30] LABS: Magnesium 1.9 mg/dL (1.6-2.6)
--- NOTE | 2017-02-03 16:57 | ED.REPORT ---
HPI-Abd Pain F Under 40 Date of Service February 03, 2017 ED Provider: Miki Rey MD Patient is a 21 year old female who presents to the ED after being referred by urgent care complaining of persistent vomiting s/p having her appendix out approximately 2 months ago. Associated symptoms include throbbing, midline abdominal pain, chills, and back pain that radiates to her hip. She denies fever , constipation, diarrhea, dysuria, melena, or any other symptoms. She reports that her pain sometimes subsides with eating. She has taken antacids without relief. Nursing Notes Stated Complaint: STOMACH PAIN Chief Complaint: Female Abdominal Pain Nursing Notes Reviewed: Yes Allergies: Coded Allergies: codeine (Verified Allergy, Severe, Anaphylaxis, 11/26/16) Cephalosporins (Verified Allergy, Unknown, 11/26/16) tramadol (Verified Adverse Reaction, Severe, 11/26/16) dizziness Uncoded Allergies: SUDAPHED (Allergy, Severe, Hives, 11/26/16) PENICILLIN (Allergy, Unknown, 11/26/16) SULFA (Allergy, Unknown, 11/26/16) Scheduled PRN Alprazolam (Alprazolam) 0.25 Mg Tablet 0.25 MG PO BID PRN PRN For Sleep oxyCODONE (oxyCODONE) 5 Mg Tablet 5 MG PO Q4H PRN PRN For Moderate Pain General Time Seen by MD: 16:56 Chief Complaint Vomiting mild Hx Obtained From: Patient Arrived By: Walk-in Sudden in Onset?: No Similar Sx Previous: Yes Past Medical History Past Medical History healthy Past Surgical History Sinus surgery Smoking History Current Every Day Smoker Social History Alcohol Use: Denies alcohol use Drug Use: Denies drug use Other Social History: Good social support, Local resident Ambulatory Status Independent Review of Systems Constitutional: Reports: Chills, Denies: Fever GI: Reports: Abdominal pain, Vomiting, Denies: Constipation, Diarrhea, Melena Female: Denies: Dysuria Musculoskeletal: Reports: Back pain Complete sys rev & neg: except as marked. Physical Exam Initial Vital Signs Vital Signs (First) Date Time Temp Pulse Resp B/P Pulse Ox O2 Delivery O2 Flow Rate FiO2 02/03/17 15:30 36.4 95 15 112/67 100 Room Air Head / Eyes: Atraumatic, Normocephalic Neck: Full range of motion Skin: Warm, Dry Neurologic: Alert, Oriented, Nonfocal Psychiatric: Mood/affect normal, Behavior normal, Normal thought content General/Constitutional: Awake, Alert, Well developed Respiratory / Chest: Breath sounds NL, Breath sounds = bilat, No respiratory distress Cardiovascular: Heart rate NL, Regular rhythm, Heart sounds NL, No gallop, No murmurs, No rubs Tenderness/Guarding/Rebound: Positive: Tender epigastric (Mild ) Back: No midline vertebral tend, No CVA tenderness Reproducable L lower back, lateral Interpretation & Diagnostics Lab Results Interpretation Result Diagram: 02/03/17 1602 02/03/17 1602 Test 02/03/17 16:02 02/03/17 16:04 02/03/17 16:35 White Blood Count 10.4th/mm3 (3.8-10.1) Red Blood Count 4.71mil/mm3 (3.90-5.20) Hemoglobin 13.9g/dL (12.0-15.6) Hematocrit 42.2% (35.0-46.0) Mean Corpuscular Volume 89.6fL (81-100) Mean Corpuscular Hemoglobin 29.5pg (27.0-35.0) Mean Corpuscular Hemoglobin Concent 32.9% (32.0-37.0) Red Cell Distribution Width 13.2% (12.3-15.4) Platelet Count 283bil/L (150-400) Neutrophils (%) (Auto) 56.8% (40-74) Lymphocytes (%) (Auto) 34.4% (14-46) Monocytes (%) (Auto) 6.8% (4-12) Eosinophils (%) (Auto) 0.8% (0-5) Basophils (%) (Auto) 0.9% (0-3) Sodium Level 138mEq/L (134-144) Potassium Level 4.3mEq/L (3.5-5.2) Chloride Level 101mEq/L (97-108) Carbon Dioxide Level 24mmol/L (18-29) Blood Urea Nitrogen 7mg/dL (6-20) Creatinine 0.51mg/dL (0.57-1.00) Estimat Glomerular Filtration Rate 214mL/min (>59) Glucose Level 92mg/dL (60-99) Calcium Level 10.0mg/dL (8.5-10.1) Magnesium Level 1.9mg/dL (1.6-2.6) Total Bilirubin 1.4mg/dL (0.0-1.2) Aspartate Amino Transf (AST/SGOT) 17U/L (0-50) Alanine Aminotransferase (ALT/SGPT) 12U/L (0-32) Alkaline Phosphatase 44U/L (25-150) Total Protein 7.5g/dL (6.4-8.4) Albumin 4.8g/dL (3.4-5.0) Lipase 35U/L (13-60) Hold Fry Top Tube Received (Received) Hold Urine Received (Received) Re-Eval/Medical Decision Med Decision/Clinical Course Med Decision/Clinical Course: 21-year-old female who is 2 months status post appendectomy presenting with 2 months of abdominal pain. She reports epigastric abdominal pain as well as left-sided abdominal pain. She reports it is typical of her chronic pain today. She reports history of gastritis. Her labs and urine are normal here. Her abdomen is soft and nontender abdomen mild epigastric tenderness. She was given a GI cocktail and then eloped as she was awaiting recheck. Re-Evaluation/Progress : Time of Eval: 18:03 Re-Evaluation/Progress Note: Patient eloepd prior to re-evaluation Counseled Regarding: Lab results Discharge & Departure Primary Impression: Abdominal pain Abdominal location: unspecified location Qualified Code: R10.9 - Unspecified abdominal pain Disposition: AGAINST MEDICAL ADVICE (Eloped ) Discharge Condition All VS Reviewed: Yes Condition: Stable Referrals: NOPCP (PCP) Scribe Attestation Portions of this note were transcribed by Janay Melchor. I, Dr. Rey personally performed the history, physical exam and medical decision-making; I reviewed and confirmed the accuracy of the information in the transcribed note. Signed by: Janay Melchor 02/03/17, 1804 Miki Rey MD February 03, 2017 16:57 JANAY MELCHOR February 03, 2017 17:13
[2017-02-03] MEDS ORDERED: LidocaineVisc 2%:Antacid 1:1 10 mL Syringe PO ONE (17:15)
[2017-02-03 18:05] VITALS: BP 112/67; PULSE 95; RESP 15; O2SAT 100
== END 2017-02-03 18:06 | disposition left against medical advice (07) ==
LOC: SED 15:16
DX: R10.9 Unspecified abdominal pain (principal); R11.10 Vomiting, unspecified; F17.200 Nicotine dependence, unspecified, uncomplicated; Z88.5 Allergy status to narcotic agent; Z88.0 Allergy status to penicillin; Z88.2 Allergy status to sulfonamides; Z88.8 Allergy status to other drugs, medicaments and biological substances

== ENCOUNTER 2017-02-26 19:55 | Emergency (ER) | payer OTHER ==
[~2017-02-26] VITALS: Ht 167.6 cm; Wt 54.5 kg
[2017-02-26 20:30] VITALS: BP 105/71; PULSE 74; RESP 18; O2SAT 97
--- NOTE | 2017-02-26 21:28 | ED.REPORT ---
HPI-Abd Pain F Under 40 Date of Service February 26, 2017 ED Provider: Dr. Gordon Pt is a 21 y/o female presenting to the ED c/o pelvic pain onset today. The patient had an IUD placed 1 month ago and since then has been experiencing mild pelvic pain, much increased today. She is unable to feel the strings of the IUD and therefore she is concerned it may have migrated out of position. She denies fever, chills, nausea, vomiting. Nursing Notes Stated Complaint: IUD POSSIBLY MOVED/SENT FROM [facility] Chief Complaint: Female Abdominal Pain Nursing Notes Reviewed: Yes Allergies: Coded Allergies: codeine (Verified Allergy, Severe, Anaphylaxis, 11/26/16) Cephalosporins (Verified Allergy, Unknown, 11/26/16) tramadol (Verified Adverse Reaction, Severe, 11/26/16) dizziness Uncoded Allergies: SUDAPHED (Allergy, Severe, Hives, 11/26/16) PENICILLIN (Allergy, Unknown, 11/26/16) SULFA (Allergy, Unknown, 11/26/16) Scheduled PRN Alprazolam (Alprazolam) 0.25 Mg Tablet 0.25 MG PO BID PRN PRN For Sleep oxyCODONE (oxyCODONE) 5 Mg Tablet 5 MG PO Q4H PRN PRN For Moderate Pain General Time Seen by MD: 21:28 Chief Complaint Abdominal pain Hx Obtained From: Patient Arrived By: Walk-in Sudden in Onset?: No Onset Occurred: 1 day ago Symptom Duration: Since onset Progression since Onset: Constant Location: : Pelvis Quality: Painful Severity: Current: Mild Severity: Maximum: Mild Similar Sx Previous: No Past Medical History Past Medical History Asthma GERD Anxiety Past Surgical History Sinus surgery Appendectomy Smoking History Current Every Day Smoker Social History Alcohol Use: Denies alcohol use Drug Use: Denies drug use Other Social History: Good social support, Local resident Ambulatory Status Independent Review of Systems Constitutional: Denies: Chills, Fever Respiratory: Denies: Non-productive cough, Shortness of breath Cardiovascular: Denies: Chest pain, Dyspnea on exertion GI: Reports: Abdominal pain, Denies: Nausea, Vomiting Female: Reports: Pelvic pain, Denies: Vaginal bleeding - abnl Complete sys rev & neg: except as marked. Physical Exam Initial Vital Signs Vital Signs (First) Date Time Temp Pulse Resp B/P Pulse Ox O2 Delivery O2 Flow Rate FiO2 5/30/17 20:30 36.4 74 18 105/71 97 Room Air Initial VS: Reviewed, Vital signs normal Head / Eyes: Atraumatic, Normocephalic, PERRL ENT: Mucous membranes moist, Conjunctiva normal, No scleral icterus Neck: Supple, Full range of motion Extremities: Vascular intact, Neuro intact, No swelling, No tenderness Skin: Warm, Dry, No cyanosis Neurologic: Alert, Oriented, Nonfocal Psychiatric: Mood/affect normal, Behavior normal, Normal thought content General/Constitutional: Awake, Alert, No acute distress, Well appearing, Cooperative, Not toxic appearing Respiratory / Chest: Breath sounds NL, Breath sounds = bilat, No respiratory distress, No rales, No rhonchi, No wheezing Cardiovascular: Heart rate NL, Regular rhythm, Heart sounds NL, No gallop, No murmurs, No rubs, Cap refill not delayed, Peripheral circulation NL Abdomen: Atraumatic, Soft, Non-tender, No guarding, No rebound, No distention, No palpable mass Back: Full range of motion, Painless range of motion Interpretation & Diagnostics Lab Results Interpretation Test 02/26/17 22:05 Urine Color Dark yellow (YELLOW) Urine Appearance Clear (CLEAR,HAZY) Urine pH 6.0 (5.0-8.0) Urine Specific [place] 1.027 (1.003-1.035) Urine Protein Negativemg/dL (NEG,TRACE) Urine Glucose (UA) Negativemg/dL (NEGATIVE) Urine Ketones 15mg/dL (NEGATIVE) Urine Occult Blood Moderate (NEGATIVE) Urine Nitrite Negative (NEGATIVE) Urine Bilirubin Small (NEGATIVE) Urine Ictotest Positive (Negative) Urine Urobilinogen Normalmg/dL (NORMAL) Urine Leukocyte Esterase Negative (NEGATIVE) Urine RBC 11-50/hpf (0-2) Urine WBC 0-5/hpf (0-5) Urine Epithelial Cells Occasional/hpf (NONE-MOD) Urine Crystals None seen (NONE SEEN) Urine Bacteria None/hpf (NONE-FEW) Urine Hyaline Casts None/lpf (NONE) Urine Granular Casts None seen (NONE SEEN) Urine Waxy Casts None seen (NONE SEEN) Urine Red Blood Cell Casts None seen (NONE SEEN) Urine White Blood Cell Casts None seen (NONE SEEN) Urine Mucus Present (None Seen) Urine Trichomonas None seen (NONE SEEN) Urine Yeast None (NONE SEEN) Urine Culture Reflexed Not indicated Urine HCG, Qualitative Negative (Negative) US Focused non-OB Pelvis Negative Exam Performed by: Allied health pract Exam Interpreted by: Allied health pract Re-Eval/Medical Decision Med Decision/Clinical Course The ultrasound is reassuring and the IUD looks normal. On pelvic examination there is no cervical motion tenderness and the IUD strings were proper placement. We have sent out a Gen-Probe. Her pain was treated symptomatically. I suspect she is having cramping relating to the hormones being released by the IUD and this may take several months to regulate. We will place her on twice daily Naprosyn for the cramping. Recommend she follows up with her mechanical engineering specialist closely. Return if any problems or any new or worsening symptoms. She will call to make a follow-up appointment regarding the GEN probe. Re-Evaluation/Progress : Time of Eval: 22:42 Re-Evaluation/Progress Note: Pt rechecked. Informed pt of plan for treatment. Pt understands and agrees with plan for treatment. F/U instructions and RTER warnings given. All questions addressed. Counseled Regarding: Diagnosis, Lab results, Need for follow-up, When/why to return to ED Discharge & Departure Primary Impression: Pelvic pain Disposition: Home Discharge Condition All VS Reviewed: Yes Condition: Stable Patient Instructions: Pelvic Pain in Women (ED) Additional Instructions: The ultrasound is reassuring. We have sent testing off for pelvic infection and the results will be available in 72 hours. Take Naprosyn twice daily as needed for pain. Follow-up with a primary care doctor this week. Call the referral number for the next available follow-up appointment. Return to the emergency department for new or worsening symptoms. Referrals: [facility] Maria Isabel Attestation Portions of this note were transcribed by Mehran Rebollar. I, Dr. Gordon personally performed the history, physical exam and medical decision-making; I reviewed and confirmed the accuracy of the information in the transcribed note. Signed by Maria Isabel Handy, 02/26/[id number] Delta Gordon DO February 26, 2017 21:28 MEHRAN REBOLLAR February 26, 2017 21:34
[2017-02-26] MEDS ORDERED: HYDROcodone-APAP 5-325 mg Tablet PO ONE (22:20)
[2017-02-26 22:38] LABS: APPEARANCE,URINE CLEAR (CLEAR,HAZY); COLOR,URINE DARK YELLOW (YELLOW); OCCULT BLOOD,URINE MODERATE (NEGATIVE); UROBILINOGEN,URINE NORMAL (NORMAL)
[2017-02-26 22:39] LABS: ICTOTEST,URINE POSITIVE (Negative)
[2017-02-26 23:21] VITALS: BP 108/72; PULSE 76; RESP 18; O2SAT 98
--- NOTE | 2017-02-27 08:45 | DRSVH ---
PROCEDURE: US PELVIC SONOGRAM + TRANSVAGINAL SONOGRAM INDICATIONS: pelvic pain TECHNIQUE: Real-time scanning was performed of the pelvic organs, with image documentation. Additional endovagi nal scanning was necessary due to incomplete visualization of the adnexal and endometrial structures by transabdominal scanning. COMPARISON: [facility] Ultrasound, US, US PELVIC+TRANSVAG, 01/18/2017, 15:35. FINDINGS: Transabdominal scanning: Limited scanning through the kidneys shows no hydronephrosis. No pathologi c free abdominal or pelvic fluid. Endovaginal scanning: Uterus: Uterus is normal in size at 8.7 x 3.4 x 4.4 cm. The endometrium measures 5 mm in combined t hickness. There is an IUD demonstrated within the endometrium extending into the fundus. Ovaries: The right ovary measures 2.3 x 1.7 x 2.2 cm and the left ovary measures 2.9 x 1.3 x 1.4 cm. No adnexal masses. IMPRESSION: 1. IUD demonstrated extending into the fundal endometrium. 2. No acute sonographic abnormality identified in the pelvis. Dictated by: Reza Stanley M.D. on 02/27/2017 at 8:42 Approved by: Reza Stanley M.D. on 02/27/2017 at 8:44
== END 2017-02-26 23:23 | disposition home or self-care (01) ==
LOC: SED 19:55
DX: R10.2 Pelvic and perineal pain (principal); J45.909 Unspecified asthma, uncomplicated; K21.9 Gastro-esophageal reflux disease without esophagitis; F17.200 Nicotine dependence, unspecified, uncomplicated; Z88.1 Allergy status to other antibiotic agents; Z88.5 Allergy status to narcotic agent